=== PATIENT | male | born 1945 | race Caucasian/White ===

== ENCOUNTER 2022-01-16 20:16 | Emergency (ER) | payer MEDICARE, SELFPAY ==
[2022-01-16 20:16] VITALS: BP 134/101; PULSE 90; RESP 18; TEMP 35.7; BMI 35.9
[2022-01-16] MEDS: HYDROcodone Bitartrate/Apap 5/325 Tablet PO (21:04)
--- NOTE | 2022-01-16 21:05 | ED.VIS.BACK ---
HPI History of Present Illness Chief Complaint: Back Narrative Narrative: 76-year-old male presenting with right lower back pain. He states that initially started about 2 weeks ago when he was helping carry firewood with a friend when he noted it. The pain has been progressive in his right gluteal region. He saw his primary care provider outpatient. He had images done by urgent care of his lumbar spine which were negative. He has been on prednisone taper for about 2 weeks. He states his pain is still present. He states he is not taking Tylenol or ibuprofen. He states he has not been doing any stretching exercises. He states that he has been doing ice to the area of his gluteal region. Patient was supposed to go to physical therapy today which was provided by his primary care provider but stated that he was in too much pain to go. PFSH PFS Home Medications aspirin 81 mg chewable tablet 81 mg PO DAILY@0800 05/11/13 [History Last Taken 04/24/17] atenolol 100 mg tablet (Tenormin) 100 mg PO DAILY 05/11/13 [History Last Taken 04/24/17] hydrochlorothiazide 25 mg tablet 25 mg PO DAILY 05/11/13 [History Last Taken 04/24/17] atorvastatin 20 mg tablet 1 tab PO DAILY 01/16/22 [History Last Taken Unknown] hydrocodone-acetaminophen 5-325mg 5mg-325mg 1 tab PO Q6H PRN pain 3 days #10 tabs 01/16/22 [Rx Last Taken Unknown] naproxen 500 mg tablet 1 tab PO BID 01/16/22 [History Last Taken Unknown] Allergy/AdvReac Type Severity Reaction Status Date / Time No Known Allergies Allergy Verified 01/16/22 20:42 Social History Smoking Status: Never smoker ROS [facility] [[email or web address] ED Constitutional Constitutional ED: Denies chills, fever(s) or sweats Eyes Eyes: Denies blurry vision or change in vision ENT ENT ED: Denies ear pain or sore throat Cardiovascular Cardiovascular: Denies chest pain, palpitations or racing heartbeat Respiratory/Chest Respiratory/Chest: Denies cough, dyspnea or sputum Gastrointestinal Gastrointestinal: Denies abdominal pain, constipation, diarrhea, nausea or vomiting Genitourinary Genitourinary ED: Denies dysuria, hematuria or urinary frequency Musculoskeletal Musculoskeletal: Reports back pain and other Details: Right gluteal pain ; Denies arthralgias or myalgias Integumentary Denies abscess, Abrasions or rash Neurologic Neurologic: Denies headache(s), paresthesias or weakness Psychiatric Psychiatric: Denies anxiety, depression, suicidal ideation or suicidal thoughts Endocrine Endocrinology: Denies polydipsia or polyuria EXAM Physical Exam Const Vital Signs: 01/16/22 20:16 01/16/22 20:16 Temperature 96.3 F L 96.3 F L Temperature Source Temporal Temporal Pulse Rate 90 90 Respiratory Rate 18 18 Blood Pressure 134/101 H 134/101 H Blood Pressure Mean 112 112 Positive well nourished General Appearance ED: NAD; Negative for pallor HEENT Reports moist mucous membranes Eyes PERRL and EOMs intact bilaterally Resp normal respiratory effort Cardio regular rate and regular rhythm Back/Spine normal to inspection and no thoracic nor lumbar tenderness Back/Spine Narrative: No midline spinal tenderness, deformity, step-off of the lumbar spine. No reproducible lumbar paraspinal muscular tenderness Lumbar Spine / Lower Back: straight leg raise positive right at 30 degrees and other (With right leg internally rotated and abducted across the body localizes pain to the sciatic area. No) Neuro oriented x3 and no sensory deficits noted Sensorium / Orientation: alert Motor Exam: strength 5/5 throughout Psych mental status grossly normal Skin no rashes or lesions noted General Skin Exam: Negative for jaundice or pallor MDM MDM MDM Narrative Medical decision making narrative: Patient's exam is consistent with sciatica. I discussed this with him and counseled him that the treatment for this would be stretching, icing ice and heat. I also discussed with him that he should be going to physical therapy and not missing appointments due to pain. He request something for pain to help him stretch. I did treat the pain with [place] here in the ED. I will give him a short supply of this for home. I did counselor camp him however that this will not fix the problem and that he still needs to do the stretching exercises and see physical therapy. I do not believe he needs any imaging and this was discussed with him at length. He is already had negative lumbar spine x-rays. I do not think a x-ray of the hip is going to help. All questions were answered. Return precautions discussed. Impression: 1. Sciatica Lab Data Attestation: I reviewed the patient's lab results. Discharge Plan Triage Chief Complaint: Back ED Provider: Doyle Crandall Dx/Rx/DC Orders Instructions: ED Sciatica Prescriptions: New hydrocodone-acetaminophen 5-325 mg tablet 1 tab PO Q6H PRN (Reason: pain) 3 Days Qty: 10 0RF No Action atenolol [Tenormin] 100 MG tablet 100 mg PO DAILY aspirin 81 MG tablet,chewable 81 mg PO DAILY@0800 hydrochlorothiazide 25 MG tablet 25 mg PO DAILY atorvastatin 20 mg tablet 1 tab PO DAILY naproxen 500 mg tablet 1 tab PO BID Label Comments: TAKE 1 TABLET BY MOUTH TWICE DAILY WITH FOOD NEEDED FOR PAIN Primary Care Provider: Chelsea Ramos Referrals: Chelsea Ramos, PA [Primary Care Provider] - Disposition Disposition: Home, Self Care
[2022-01-16 21:14] VITALS: RESP 16
== END 2022-01-16 21:16 | disposition home or self-care (01) ==
PROVIDERS: Emergency Provider Student in an Organized Health Care Education/Training Program; PCP Family Medicine; Visit Provider Student in an Organized Health Care Education/Training Program
DX: M54.41 Lumbago with sciatica, right side (principal)
CPT/HCPCS: 99283